=== PATIENT | male | born 1985 | race Hispanic/Latino ===

== ENCOUNTER 2018-02-26 08:10 | Emergency (ER) | payer MEDICAID, OTHER ==
--- NOTE | 2018-02-26 08:49 | C.PDOC ---
History Of Present Illness 32yo male, presents to the emergency department with complaints of itching and swelling to his foreskin. Patient states he sweats a lot when he works. He denies any nausea/vomiting, fever, dysuria, hematuria, or any other associated symptoms. No other complaints at this time. Time Seen by Provider: 02/26/18 08:12 Chief Complaint (Nursing): Male Genitourinary History Per: Patient History/Exam Limitations: no limitations Onset/Duration Of Symptoms: Days (4) Current Symptoms Are (Timing): Still Present Severity: Mild Pain Scale Rating Of: 1 Quality Of Discomfort: Burning Recent travel outside of the [place]: No Additional History Per: Patient Past Medical History Reviewed: Historical Data, Nursing Documentation, Vital Signs Vital Signs: Last Vital Signs Temp 98.3 F 02/26/18 08:25 Pulse 92 H 02/26/18 08:25 Resp 90 H 02/26/18 08:25 BP 148/87 02/26/18 08:25 Pulse Ox 99 02/26/18 08:25 - Medical History PMH: Diabetes, HTN Surgical History: No Surg Hx Family History: States: Diabetes - Social History Hx Tobacco Use: Yes Hx Alcohol Use: No Hx Substance Use: No (Hx of marijuana use) - Immunization History Hx Tetanus Toxoid Vaccination: Yes Hx Influenza Vaccination: No Hx Pneumococcal Vaccination: No Review Of Systems Genitourinary: Negative for: Dysuria, Frequency, Incontinence, Hematuria, Penile Discharge, Scrotal Pain, Rash Physical Exam - Physical Exam Appears: Non-toxic, No Acute Distress Skin: Warm, Dry, No Rash Head: Atraumatic Eye(s): bilateral: Normal Inspection Nose: Normal Oral Mucosa: Moist Lips: Normal Appearing Neck: Normal ROM Cardiovascular: Rhythm Regular, No Murmur Respiratory: Normal Breath Sounds, No Accessory Muscle Use Gastrointestinal/Abdominal: Soft, No Tenderness Male Genital: No Circumcised, Other (+swelling to the foreskin. small amount of white discharge around the tip ) Extremity: Normal ROM, No Deformity Neurological/Psych: Oriented x3, Normal Speech Gait: Steady ED Course And Treatment O2 Sat by Pulse Oximetry: 99 Pulse Ox Interpretation: Normal (RA) Disposition Counseled Patient/Family Regarding: Studies Performed, Diagnosis, Need For Followup, Rx Given - Disposition Referrals: [facility] [Outside] [place] [facility] [Outside] Dayne Goodwin MD [Staff Provider] - Disposition: HOME/ ROUTINE Disposition Time: 10:00 Condition: GOOD Prescriptions: Cephalexin [cephalexin] 500 mg PO Q6 #28 cap Instructions: Balanitis Forms: [facility] (Dutch) - POA Present On Arrival: None - Clinical Impression Clinical Impression: Balanitis - Scribe Statement The provider has reviewed the documentation as recorded by the Scribe (Amilcar Fenton) All medical record entries made by the Scribe were at my direction and personally dictated by me. I have reviewed the chart and agree that the record accurately reflects my personal performance of the history, physical exam, medical decision making, and the department course for this patient. I have also personally directed, reviewed, and agree with the discharge instructions and disposition.
[2018-02-26 09:26] VITALS: BP 142/78; PULSE 86; RESP 16; TEMP 98.4
[2018-02-26 09:40] VITALS: O2SAT 99
== END 2018-02-26 09:10 | disposition home or self-care (01) ==
LOC: C.ER 08:10
DX: N48.1 Balanitis (principal)